=== PATIENT | male | born 1980 | race American Indian/Alaskan Native ===

== ENCOUNTER 2017-03-29 13:02 | Emergency (ER) | payer OTHER ==
[2017-03-29 13:02] VITALS: BMI 29.2
[2017-03-29] MEDS ORDERED: Sodium Chloride 0.9% 1,000 ML IV ONE (13:18)
[2017-03-29] MEDS ORDERED: Sodium Chloride 0.9% 1,000 ML ONE (13:39)
[2017-03-29 14:19] LABS: BASO % 0.5 % (0.0-2.0); EOS # 0.1 K/uL (0.0-0.7); LYMPH % 18.9 % (20.0-40.0); MEAN CELL VOLUME 90.5 fL (80.0-94.0); MEAN CORPUSCULAR HGB CONC 33.2 g/dL (33.0-37.0); MEAN PLATELET VOLUME 9.4 fL (7.2-11.7); MONO # 0.5 K/uL (0.0-0.8); MONO % 9.2 % (0.0-10.0); NEUT # 3.9 K/uL (1.8-7.0); NEUT % 70.4 % (50.0-75.0); NRBC % 0.1 % (0.0-2.0); RBC 5.01 Mil/uL (4.40-5.90); RED CELL DISTRIBUTION WIDTH 12.2 % (11.5-14.5); WHITE BLOOD COUNT 5.5 K/uL (4.8-10.8)
[2017-03-29 14:29] LABS: URINE BILIRUBIN NEGATIVE (NEGATIVE); URINE BLOOD NEGATIVE (NEGATIVE); URINE CLARITY Clear (Clear); URINE COLOR Yellow (YELLOW); URINE GLUCOSE (UA) NORMAL (Normal); URINE LEUKOCYTE ESTERASE NEG Leu/uL (Negative); URINE NITRATE NEGATIVE (NEGATIVE); URINE PROTEIN NEGATIVE (NEGATIVE); URINE UROBILINOGEN NORMAL mg/dL (0.2-1.0)
[2017-03-29 14:33] LABS: ALB/GLOB RATIO 1.4 (1.0-2.1); ALBUMIN 4.7 g/dL (3.5-5.0); ALT/SGPT 40 U/L (21-72); AST/SGOT 45 U/L (17-59); BLOOD UREA NITROGEN 12 mg/dL (9-20); CALCIUM 8.4 mg/dl (8.6-10.4); GFR AFRICAN-AMERICAN > 60; GFR NON-AFRICAN AMERICAN > 60
[2017-03-29] MEDS ORDERED: Potassium Chloride 20 mEq ER Tab PO STA (14:34)
--- NOTE | 2017-03-29 14:34 | C.PDOC ---
History Of Present Illness Patient brougtht to ED by police for evaluation. Patient is under arrest for trashing his apartment apparently, was throwing and destrying things. In the back of the police car, patient was sleeping and began to have shaking/ thrashing. Patient woke up and was not pot-ictal, denies loss of bowel/bladder incontinence, tongue biting, or history of seizure disorder. He also denies head injury. Patient admits to drinking alcohol last nigth and smoking hookah. He also states he thinks he as dreaming, has been told previously by his he sometimes shakes/thrashes during his dreams. Time Seen by Provider: 03/29/17 13:09 Chief Complaint (Nursing): Medical Clearance History Per: Patient, Other (police) History/Exam Limitations: no limitations Onset/Duration Of Symptoms: Mins Current Symptoms Are (Timing): Gone Severity: Mild Past Medical History Reviewed: Historical Data, Nursing Documentation, Vital Signs Vital Signs: Last Vital Signs Temp 98.4 F 03/29/17 14:53 Pulse 105 H 03/29/17 14:53 Resp 18 03/29/17 14:53 BP 135/85 03/29/17 14:53 Pulse Ox 99 03/29/17 14:53 - Medical History PMH: No Chronic Diseases - [facility] Procedures CLOSURE SKIN & SUBCUTANEOUS NEC (04/15/14) INJECT/INFUSE NEC (04/15/14) TETANUS TOXOID ADMINIST (04/15/14) Family History: States: No Known Family Hx - Social History Hx Alcohol Use: Yes Hx Substance Use: Yes - Immunization History Hx Tetanus Toxoid Vaccination: No Hx Influenza Vaccination: No Hx Pneumococcal Vaccination: No Review Of Systems Except As Marked, All Systems Reviewed And Found Negative. Constitutional: Negative for: Fever, Chills Cardiovascular: Negative for: Chest Pain Respiratory: Negative for: Shortness of Breath Gastrointestinal: Negative for: Nausea, Vomiting, Abdominal Pain, Diarrhea Neurological: Negative for: Weakness, Numbness, Confusion, Seizures, Altered Mental Status, Headache, Dizziness Psych: Negative for: Depression, Suicidal ideation Physical Exam - Physical Exam Appears: Well, Non-toxic, No Acute Distress Skin: Other (abrasion on left anterior shoulder, and inferior to neck (betwen scapular)) Head: Atraumatic, Normacephalic Eye(s): bilateral: Normal Inspection, PERRL, EOMI Oral Mucosa: Moist Neck: Normal, Normal ROM, No Midline Cervical Tenderness, No Paracervical Tenderness, No Step Off Deformity, Supple Cardiovascular: Rhythm Regular (mildly tachycardic ) Respiratory: Normal Breath Sounds, No Rales, No Rhonchi, No Wheezing Gastrointestinal/Abdominal: Normal Exam, Bowel Sounds, Soft, No Tenderness Extremity: Normal ROM, No Tenderness, No Deformity Extremity: Bilateral: Atraumatic, Normal Color And Temperature, Normal ROM Pulses: Left Dorsalis Pedis: Normal, Right Dorsalis Pedis: Normal Neurological/Psych: Oriented x3, Normal Speech, Normal Cognition, Normal Cranial Nerves, No Cerebellar Signs, Normal Motor, Normal Sensation Gait: Steady ED Course And Treatment - Laboratory Results Result Diagrams: 03/29/17 14:08 03/29/17 14:08 ECG: Interpreted By Me, Viewed By Me (sinus tachycardia 109 bpm, normal axis, no acute ST/T wave changes) O2 Sat by Pulse Oximetry: 95 (RA) Pulse Ox Interpretation: Normal Progress Note: Blood work, UA, UDS ordered and reviewed. Patient given IV NS bolus. Blood work showed mild hypokalemia and elevation of CK. Suspect CK elevation is from physical exertion/trashing of apartment and not from any seizure activity. Patient given PO Kdur. Reevaluation Time: 14:50 Reassessment Condition: Improved (On reassessment, patient is resting comfortably, states he feels well and would like to be discharged. Patient is medically cleared for incarceration - discharged to policre custody.) Disposition Counseled Patient/Family Regarding: Studies Performed, Diagnosis, Need For Followup, Rx Given - Disposition Referrals: [facility] [Outside] Disposition: RELEASED IN POLICE CUSTODY Disposition Time: 14:50 Condition: STABLE Additional Instructions: PATIENT MEDICALLY CLEARED FOR INCARCERATION FOLLOW UP WITH YOUR DOCTOR/CLINIC WITHIN 1 WEEK Forms: [facility] (Grenadian), General Discharge Instructions Print Language: KINYARWANDA - Clinical Impression Clinical Impression: Medical assessment, Alcohol use
[2017-03-29 14:37] LABS: BARBITURATES, UR NEGATIVE (NEGATIVE); BENZODIAZEPINES, UR NEGATIVE (NEGATIVE); OPIATES, UR NEGATIVE (NEGATIVE); PHENCYCLIDINE, UR NEGATIVE (NEGATIVE)
[2017-03-29] MEDS ORDERED: Potassium Chloride 20 mEq ER Tab PO ONE (14:38)
[2017-03-29 14:54] VITALS: BP 135/85; PULSE 105; RESP 18; TEMP 98.4
[2017-03-29 15:00] VITALS: O2SAT 95
--- NOTE | 2017-03-30 13:34 | CARD ---
APPROVED REPORT EKG Measurement Heart [id number] <Conclusion> Sinus tachycardia Possible Left atrial enlargement Borderline ECG
== END 2017-03-29 14:55 ==
LOC: C.ER 13:02
DX: Z72.89 Other problems related to lifestyle (principal)
CPT/HCPCS: 80053; 80320; 80324; 80345; 80346; 80349; 80353; 80358; 80361; 81001; 82550; 82948; 83992; 85025; 93005; 96360; 99284; J7040